=== PATIENT | female | born 1965 | race African-American/Black ===

== ENCOUNTER 2019-07-24 05:45 | Emergency (ER) | payer MEDICARE ==
[~2019-07-24] VITALS: Ht 165.1 cm; Wt 156.4 kg
[~2019-07-24 05:45] MED LIST: ASA LOW DOSE81 MG OR; ATACAND4 MG OR; CEPHALEXIN500 M1 PO; COREG6.25 MG OR; COUMADIN10 MG OR; IMDUR30 MG OR; K-DUR/KLOR-CON10 MEQ OR; KEFLEX500 M1 PO; LASIX40 MG OR; NAPROSYN500 MG PO
[2019-07-24 06:41] LABS: HEMATOCRIT 38.1 % (37.0-47.0); HEMOGLOBIN 11.9 g/dl (12.0-16.0); IMMATURE GRANULOCYTES 0.3 % (0.0-5.0); MEAN CELL VOLUME 84.5 fL CALC (80.0-100.0); MEAN CORPUSCULAR HGB 26.4 pG CALC (26.0-32.0); MEAN CORPUSCULAR HGB CONC 31.2 g/L CALC (32.0-36.0); NEUT# 4.71 thou/uL (2.00-7.15); RED BLOOD COUNT 4.51 mill/uL (4.20-5.60); RED CELL DISTRI WIDTH 14.8 % (11.5-15.5)
[2019-07-24 06:58] LABS: ALBUMIN 4.1 g/dL (3.2-5.0); ALKALINE PHOSPHATASE 104 u/l (38-126); ANION GAP 15 (6-22 (CALC)); BILIRUBIN, TOTAL 0.9 mg/dL (0.0-1.4); BUN 10 mg/dL (7-17); BUN/CREATININE RATIO 10 (12-20 (CALC)); CARBON DIOXIDE 26 mmol/l (22-30); CHLORIDE 106 mmol/l (95-108); CPK 53 u/l (30-165); GFR 58 ML/MIN (>=60 (CALC)); GFR FOR AFR.AMER. > 60 ML/MIN (>=60 (CALC)); MAGNESIUM 1.8 mg/dL (1.6-2.3); POTASSIUM 4.2 mmol/l (3.5-5.1); SGOT/AST 18 u/l (14-36); SODIUM 142 mmol/l (137-146); TOTAL PROTEIN 8.3 g/dL (6.3-8.2)
[2019-07-24 07:06] LABS: MYOGLOBIN 41 ng/mL (0 - 62)
[2019-07-24 07:28] LABS: TSH, 3RD GENERATION 4.45 uIU/mL (0.47 - 4.68)
[2019-07-24 08:56] VITALS: BP 111/73
== END 2019-07-24 08:59 | disposition home or self-care (01) ==
LOC: ED 05:45
PROVIDERS: Family Medicine
DX: S86.912A Strain of unspecified muscle(s) and tendon(s) at lower leg level, left leg, initial encounter (principal); E11.9 Type 2 diabetes mellitus without complications; I11.0 Hypertensive heart disease with heart failure; I50.9 Heart failure, unspecified; X58.XXXA Exposure to other specified factors, initial encounter; M79.662 Pain in left lower leg

== ENCOUNTER 2022-04-02 03:10 | Emergency (ER) | payer MEDICARE ==
[2022-04-02] VITALS (7 sets, daily range): BP systolic 110–136; BP diastolic 70–86
[~2022-04-02] VITALS: Ht 165.1 cm; Wt 159.0 kg
[2022-04-02 03:49] LABS: HEMATOCRIT 40.3 % (37.0-47.0); HEMOGLOBIN 12.3 g/dl (12.0-16.0); IMMATURE GRANULOCYTES 0.2 % (0.0-5.0); MEAN CELL VOLUME 82.9 fL CALC (80.0-100.0); MEAN CORPUSCULAR HGB 25.3 pG CALC (26.0-32.0); MEAN CORPUSCULAR HGB CONC 30.5 g/dL CAL (32.0-36.0); NEUT# 7.27 thou/uL (2.00-7.15); RED BLOOD COUNT 4.86 mill/uL (4.20-5.60); RED CELL DISTRI WIDTH 15.8 % (11.5-15.5)
[2022-04-02 03:54] LABS: ALKALINE PHOSPHATASE 98 u/l (38-126); ANION GAP 13 (6-22 (CALC)); BILIRUBIN, TOTAL 1.1 mg/dL (0.0-1.4); BUN 14 mg/dL (7-17); BUN/CREATININE RATIO 12 (12-20 (CALC)); CARBON DIOXIDE 28 mmol/l (22-30); CHLORIDE 109 mmol/l (95-108); CREATININE 1.2 mg/dL (0.5-1.0); GFR 46 ML/MIN (>=60 (CALC)); GFR FOR AFR.AMER. 56 ML/MIN (>=60 (CALC)); POTASSIUM 4.3 mmol/l (3.5-5.1); SGOT/AST 21 u/l (14-36); SODIUM 146 mmol/l (137-146); TOTAL PROTEIN 8.2 g/dL (6.3-8.2)
[2022-04-02 03:55] LABS: D-DIMER 1.49 mg/L (0.19-0.60)
[2022-04-02 03:59] LABS: PROTHROMBIN TIME 10.4 SECONDS (9.0-12.5)
[2022-04-02 04:07] LABS: MYOGLOBIN 24 ng/mL (0 - 62)
[2022-04-02 04:25] LABS: TSH, 3RD GENERATION 2.41 uIU/mL (0.47 - 4.68)
[2022-04-02 04:27] LABS: URINE BILIRUBIN - DIPSTICK NEGATIVE (NEGATIVE); URINE BLOOD DIPSTICK NEGATIVE (NEGATIVE); URINE COLOR YELLOW; URINE GLUCOSE - DIPSTICK NEGATIVE (NEGATIVE); URINE KETONE NEGATIVE (NEGATIVE); URINE LEUK ESTERASE NEGATIVE (NEGATIVE); URINE NITRITE - DIPSTICK NEGATIVE (Negative); URINE PROTEIN - DIPSTICK NEGATIVE (NEG-TRACE); URINE UROBILINOGEN - DIPSTICK 0.2 E.U./dL (0.2)
[2022-04-02] MEDS ORDERED: METOLAZONE5 MG PO (06:04)
== END 2022-04-02 06:14 | disposition home or self-care (01) ==
LOC: ED 03:10
PROVIDERS: Family Medicine
DX: I11.0 Hypertensive heart disease with heart failure (principal); I50.23 Acute on chronic systolic (congestive) heart failure; E11.9 Type 2 diabetes mellitus without complications; E78.00 Pure hypercholesterolemia, unspecified; T50.1X6A Underdosing of loop [high-ceiling] diuretics, initial encounter; Z91.128 Patient's intentional underdosing of medication regimen for other reason; Z87.891 Personal history of nicotine dependence; Z95.0 Presence of cardiac pacemaker; Z20.822 Contact with and (suspected) exposure to COVID-19

== ENCOUNTER 2023-12-23 22:09 | Observation (INO) | payer MEDICARE ==
[~2023-12-23] VITALS: Ht 165.1 cm; Wt 174.0 kg
[~2023-12-23 22:09] MED LIST changes: +METOLAZONE5 MG PO
--- NOTE | 2023-12-23 22:09 | NUR ---
PATIENT TO ROOM 3 VIA EMS STRETCHER. PATIENT WAS ABLE TO STAND AND TURN AND SIT ONTO ER STRETCHER. PATIENT BECAME WINDED, BUT RECOVERED QUICKLY. UNABLE TO PLACE IN GOWN DUE TO PATIENT SIZE. PLACED ON MONITOR, TRIAGE COMPLETED AT BEDSIDE.
[2023-12-23 22:14] VITALS: BP 126/90
[2023-12-23 22:16] VITALS: BP 115/88
[2023-12-23 22:30] VITALS: BP 114/82
[2023-12-23] MEDS ORDERED: methylPREDNISolone SODIUM SUCC 125 MG/2 ML SDV IV ONE (22:30)
[2023-12-23] MEDS ORDERED: BUMETANIDE 1 MG/4 ML VIAL IV ONE (22:30)
[2023-12-23] MEDS ORDERED: IPRATROPIUM-Albuterol 0.5MG-2.5MG/3 ML NEB ONE (22:30)
[2023-12-23 22:46] VITALS: BP 109/70
[2023-12-23 22:48] LABS: BASO% 0.4 % (0-3); EOS% 1.1 % (0-8); HEMATOCRIT 42.5 % (37.0-47.0); HEMOGLOBIN 12.6 g/dl (12.0-16.0); IMMATURE GRANULOCYTES 0.4 % (0.0-5.0); LYMPH% 20.6 % (15-41); MEAN CELL VOLUME 86.9 fL CALC (80.0-100.0); MEAN CORPUSCULAR HGB 25.8 pG CALC (26.0-32.0); MEAN CORPUSCULAR HGB CONC 29.6 g/dL CAL (32.0-36.0); MONO% 7.1 % (2-13); NEUT# 5.29 thou/uL (2.00-7.15); NEUT% 70.4 % (42-76); RED BLOOD COUNT 4.89 mill/uL (4.20-5.60); RED CELL DISTRI WIDTH 16.4 % (11.5-15.5)
[2023-12-23 23:00] VITALS: BP 114/78
[2023-12-23 23:04] LABS: D-DIMER 1.22 mg/L (0.19-0.60)
[2023-12-23 23:05] LABS: ALBUMIN 3.9 g/dL (3.2-5.0); ALKALINE PHOSPHATASE 103 u/l (38-126); ANION GAP 12 (6-22 (CALC)); BUN 15 mg/dL (7-17); BUN/CREATININE RATIO 12 (12-20 (CALC)); CARBON DIOXIDE 26 mmol/l (22-30); CHLORIDE 110 mmol/l (95-108); CREATININE 1.3 mg/dL (0.5-1.0); GFR FOR AFR.AMER. 51 ML/MIN (>=60 (CALC)); GFR OTHER RACES 42 ML/MIN (>=60 (CALC)); INTERNATIONAL NORMALIZED RATIO 1.2 RATIO (0.7-1.3); POTASSIUM 4.1 mmol/l (3.5-5.1); PROTHROMBIN TIME 11.5 SECONDS (9.0-12.5); SGOT/AST 35 u/l (14-36); SODIUM 143 mmol/l (137-146); TOTAL PROTEIN 7.6 g/dL (6.3-8.2)
--- NOTE | 2023-12-23 23:35 | NUR ---
PATIENT VOIDED 550CC CLEAR YELLOW URINE. SAMPLE COLLECTED AND SENT. PATIENT DENIES ANY NEW COMPLAINTS AT PRESENT. AWARE OF POSSIBLE ADMISSION AND POTENTIAL HOLDING IN ER.
[2023-12-23 23:59] LABS: URINE BILIRUBIN - DIPSTICK Negative (NEGATIVE); URINE BLOOD DIPSTICK Trace-intact (NEGATIVE); URINE GLUCOSE - DIPSTICK Negative (NEGATIVE); URINE KETONE Negative (NEGATIVE); URINE LEUK ESTERASE Negative (NEGATIVE); URINE NITRITE - DIPSTICK Negative (Negative); URINE PH 5.5 (4.5-8.0); URINE PROTEIN - DIPSTICK Negative (NEG-TRACE); URINE SPECIFIC GRAVITY 1.015; URINE UROBILINOGEN - DIPSTICK 0.2 E.U./dL (0.2)
[2023-12-24] VITALS (14 sets, daily range): BP systolic 105–133; BP diastolic 62–95
[2023-12-24 00:02] LABS: URINE COLOR Yellow
--- NOTE | 2023-12-24 00:49 | NUR ---
MD AT BEDSIDE TO DISCUSS ALL RESULTS. PATIENT O2 SAT DOWN TO 88%, PLACED ON 2L VIA NC. PATIENT TO BE ADMITTED.
[2023-12-24] MEDS ORDERED: BUMETANIDE 1 MG/4 ML VIAL IV ONE (00:50)
--- NOTE | 2023-12-24 01:05 | NUR ---
PATIENT TO CAT SCAN. VIA WHEELCHAIR ON O2.
--- NOTE | 2023-12-24 01:30 | NUR ---
PATIENT RETURNS FROM CAT SCAN. TECH STATES SHE WAS UNABLE TO LAY FLAT EVEN AFTER ATTEMPTS MADE TO MAKE HER COMFORTABLE.
--- NOTE | 2023-12-24 02:20 | NUR ---
ULTRASOUND ARRIVES AT BEDSIDE FOR EXAM.
--- NOTE | 2023-12-24 03:00 | NUR ---
PATIENT VOIDED SECOND TIME APPROX 500CC.
[2023-12-24] MEDS ORDERED: MIDAZOLAM HCL 2 MG/2 ML VIAL IV ONE (03:40)
--- NOTE | 2023-12-24 03:42 | NUR ---
PATIENT MEDICATED PER ORDER TO ASSIST PATIENT IN LAYING FLAT ON CT TABLE.
--- NOTE | 2023-12-24 03:52 | NUR ---
PATIENT TO CAT SCAN WITH RN AND ON O2 AND MONITOR.
--- NOTE | 2023-12-24 04:25 | NUR ---
RETURN TO DEPARTMENT AND MOVED TO ROOM [address] ON A HOSPITAL BED FOR COMFORT. PATIENT AMBULATED SEVERAL STEPS TO BEDSIDE COMMODE.
--- NOTE | 2023-12-24 04:45 | NUR ---
PATIENT PLACED HERSELF IN HOSPITAL BED INDEPENDENTLY. PATIENT VOIDED 900CC CLEAR URINE. PATIENT POSITIONED FOR COMFORT. CALL LIGHT WITHIN REACH.
[2023-12-24] MEDS ORDERED: ENOXAPARIN SODIUM 30 MG/0.3 ML INJ IV ONE (05:20)
[2023-12-24] MEDS ORDERED: ONDANSETRON HCl 4 MG/2 ML SDV IV PRN (05:30)
[2023-12-24] MEDS ORDERED: ONDANSETRON 4 MG/TAB ODT PO PRN (05:30)
[2023-12-24] MEDS ORDERED: IBUPROFEN 800 MG/TAB PO PRN (05:30)
[2023-12-24] MEDS ORDERED: ALUM & MAG HYDROX-SIMETHICONE 30 ML PO PRN (05:30)
[2023-12-24] MEDS ORDERED: FAMOTIDINE 10MG/ML 2ML SDV IV PRN (05:30)
[2023-12-24] MEDS ORDERED: MAGNESIUM HYDROXIDE 30 ML UDC PO PRN (05:30)
--- NOTE | 2023-12-24 05:30 | NUR ---
UNABLE TO GIVE LOVENOX, MED IS NOT AVAILABLE/LOADED. CALL PLACED TO CARDINAL TO ASSIST WITH CORRECTING THE ORDER.
--- NOTE | 2023-12-24 06:30 | NUR ---
PATIENT RESTING QUIETLY ON HOSPITAL BED. DENIES ANY NEEDS AT THIS TIME.
[2023-12-24] MEDS ORDERED: ISOSORB MONO30 MG PO (06:57)
[2023-12-24] MEDS ORDERED: CARVEDILOL25 MG PO (06:58)
[2023-12-24] MEDS ORDERED: LOSARTAN POTASS25 MG PO (07:01)
[2023-12-24] MEDS ORDERED: SERTRALINE HYD100 MG PO (07:01)
[2023-12-24] MEDS ORDERED: LOVASTATIN40 M1 PO (07:01)
[2023-12-24] MEDS ORDERED: POTASSIUM CHLO20 MEQ PO (07:02)
[2023-12-24] MEDS ORDERED: TRULICITY1.5 MG/0.5 SC (07:06)
--- NOTE | 2023-12-24 07:08 | NUR ---
PT REPORT RECEIEVED FROM NURSE. PT IN STRETCHER RESTING. PT VSS. EASILY AROUSABLE.
[2023-12-24] MEDS ORDERED: LEVOTHYROXIN88 MC1 PO (07:09)
--- NOTE | 2023-12-24 07:41 | NUR ---
PT RESTING. O2 LOW. PT O2 CANNULA OFF. PT AROUSED AND ADVISED TO PLACE O2 CANNULA ON. PT PLACED CANNULA ON. PROVIDER AWARE.
--- NOTE | 2023-12-24 07:56 | NUR ---
PT PROVIDED BREAKFAST. PT VERBALIZED NO NEEDS AT THIS TIME.
--- NOTE | 2023-12-24 09:00 | NUR ---
PT IS RESTING. PT O2 LOW. PT FOUND WITH O2 CANNULA OFF. PLACED CANULLA ON. PT VERBALZED NO NEEDS. CALL LIGHT IN REACH.
[2023-12-24] MEDS ORDERED: ENOXAPARIN SODIUM 80 MG/0.8 ML SYR SC SCH (09:30)
[2023-12-24] MEDS ORDERED: ENOXAPARIN SODIUM 100 MG/ML SYR SC SCH (09:30)
--- NOTE | 2023-12-24 10:10 | NUR ---
PT IS ALERT. PT VSS. CALL LIGHT IN REACH.
--- NOTE | 2023-12-24 11:32 | NUR ---
PT IS ALERT. VSS. CALL LIGHT IN REACH. PT VERBALIZED NO NEEDS AT THIS TIME.
[2023-12-24] MEDS ORDERED: IPRATROPIUM-Albuterol 0.5MG-2.5MG/3 ML NEB PRN (12:10)
--- NOTE | 2023-12-24 12:46 | NUR ---
PT IS RESTING. PT EASILY AROUSABLE. VSS. CALLL LIGHT IN REACH.
[2023-12-24] MEDS ORDERED: methylPREDNISolone Sod Succ 40 MG/ML SDV IV SCH (13:30)
--- NOTE | 2023-12-24 13:37 | NUR ---
PT RESTING. VSS. CALL LIGHT IN REACH.
[2023-12-24] MEDS ORDERED: BUMETANIDE 1 MG/4 ML VIAL IV SCH (14:00)
--- NOTE | 2023-12-24 14:20 | NUR ---
REPORT CALLED TO [facility]. PT TRANSPORTED FROM [facility]. PT GATHERED ALL [facility] PRIOR TO DEPARTURE.
== END 2023-12-24 14:20 | disposition short-term general hospital (02) ==
LOC: ED 22:09 → ED-I 22:34 → ED 22:34 → ED-I 12-24 05:16 → ED 12-24 08:16 → ED-I 12-24 08:17 → MS2 12-24 09:46
PROVIDERS: Internal Medicine; ADMIT Student in an Organized Health Care Education/Training Program; ATTEND Student in an Organized Health Care Education/Training Program
DX: I11.0 Hypertensive heart disease with heart failure (principal); I50.23 Acute on chronic systolic (congestive) heart failure; I31.39 Other pericardial effusion (noninflammatory); E11.9 Type 2 diabetes mellitus without complications; I25.10 Atherosclerotic heart disease of native coronary artery without angina pectoris; E66.01 Morbid (severe) obesity due to excess calories; Z68.44 Body mass index [BMI] 60.0-69.9, adult; J43.9 Emphysema, unspecified; E78.00 Pure hypercholesterolemia, unspecified; T50.1X6A Underdosing of loop [high-ceiling] diuretics, initial encounter; Z91.128 Patient's intentional underdosing of medication regimen for other reason; Z95.0 Presence of cardiac pacemaker; Z87.891 Personal history of nicotine dependence
CPT/HCPCS: J1650; Q9967